=== PATIENT | male | born 1960 | race Two or more races ===

== ENCOUNTER 2021-01-16 13:43 | Emergency (ER) | payer SELFPAY ==
[~2021-01-16] VITALS: Ht 175.3 cm; Wt 77.1 kg
[2021-01-16 15:56] VITALS: BP 136/85
== END 2021-01-16 16:52 | disposition home or self-care (01) ==
LOC: ER 13:43
DX: S16.1XXA Strain of muscle, fascia and tendon at neck level, initial encounter (principal); X58.XXXA Exposure to other specified factors, initial encounter; Y93.89 Activity, other specified; Y92.89 Other specified places as the place of occurrence of the external cause; Y99.8 Other external cause status
CPT/HCPCS: 72040